=== PATIENT | female | born 1955 | race Caucasian/White ===

== ENCOUNTER → 2017-01-13 | Outpatient (CLI) | payer OTHER ==
[~2017-01-13] MED LIST: ASPCH81 PO; ENAL10TA88 PO; GLC500 PO; HYG25 PO; METO100T14 PO; SITA25TA PO
[2017-01-13 14:10] LABS: ESTIMATED AVERAGE GLUCOSE 220 mg/dl; HA1C FLAG Normal (Normal)
[2017-01-13 14:11] LABS: CALCIUM 9.7 mg/dl (8.5-10.1)
[2017-01-13 14:49] LABS: BLOOD UREA NITROGEN 17 mg/dl (7-18); CARBON DIOXIDE 24 mmol/L (21-32); CHLORIDE 102 mmol/L (98-107); CHOLESTEROL 232 mg/dl (0-200); GLUCOSE 212 mg/dl (70-99); POTASSIUM 4.1 mmol/L (3.5-5.1); SODIUM 139 mmol/L (136-145)
[2017-01-13 14:53] LABS: ALT/SGPT 30 U/L (12-78); HDL CHOLESTEROL 46 mg/dl; LDL CHOLESTEROL CALCULATED 127 mg/dl; TRIGLYCERIDES 293 mg/dl (0-150); VERY LOW DENSITY LIPOPROT CALC 59 mg/dl
== END | disposition home or self-care (01) ==
LOC: C.LABBC 11:01
PROVIDERS: ATTEND Family Medicine
DX: E11.9 Type 2 diabetes mellitus without complications (principal)

== ENCOUNTER → 2017-01-16 | Outpatient (CLI) | payer OTHER | END | disposition home or self-care (01) | LOC: C.PAPS 13:20 | PROVIDERS: ATTEND Family Medicine | DX: Z01.419 Encounter for gynecological examination (general) (routine) without abnormal findings (principal); N95.8 Other specified menopausal and perimenopausal disorders ==

== ENCOUNTER → 2017-04-16 | Outpatient (CLI) | payer OTHER ==
[2017-04-16 17:04] LABS: BLOOD UREA NITROGEN 19 mg/dl (7-18); BUN/CREATININE RATIO 17.1 (10-20); CALCIUM 9.3 mg/dl (8.5-10.1); CARBON DIOXIDE 27 mmol/L (21-32); CHLORIDE 102 mmol/L (98-107); GLUCOSE 148 mg/dl (70-99); SODIUM 136 mmol/L (136-145)
[2017-04-16 17:07] LABS: CHOLESTEROL 164 mg/dl (0-200); CHOLESTEROL/HDL RATIO 3.6; HDL CHOLESTEROL 46 mg/dl; LDL CHOLESTEROL CALCULATED 77 mg/dl; TRIGLYCERIDES 205 mg/dl (0-150); VERY LOW DENSITY LIPOPROT CALC 41 mg/dl
[2017-04-17 07:24] LABS: ESTIMATED AVERAGE GLUCOSE 223 mg/dl; HA1C FLAG Normal (Normal)
== END | disposition home or self-care (01) ==
LOC: C.LABBC 12:41
PROVIDERS: ATTEND Family Medicine
DX: E11.9 Type 2 diabetes mellitus without complications (principal); E78.5 Hyperlipidemia, unspecified; I10 Essential (primary) hypertension

== ENCOUNTER → 2018-04-09 | Outpatient (CLI) | payer BC ==
[~2018-04-09] MED LIST changes: +ANAS1TAB59 PO; +CALC500C70 PO; +CANA1TAB PO; +GLIP2.5T11 PO; +RANI150T3 PO; +SITA100T3 PO; -SITA25TA PO
[2018-04-09 14:34] VITALS: BP 130/79; PULSE 67; TEMP 36.8; O2SAT 98
--- NOTE | 2018-04-09 15:34 | Radiation Oncology Follow-Up ---
Radiation Oncology Follow-Up Date of Visit Apr 09, 2018. Reason For Visit One-month follow-up and cancer survivorship care plan Radiation Completion Date finished 03-03-18 Diagnosis (1) Malignant neoplasm of upper-outer quadrant of left breast in female, estrogen receptor positive Status: Acute Onset Date: 05/21/2017 Stage: ll (A) Permanent Comment: Self detected left breast mass Status post core needle biopsy May 21, 2017 Invasive carcinoma grade 3 Estrogen receptor positive, progesterone receptor negative,and HER-2/tammie negative Status post left axillary node core needle biopsy June 11, 2017 Metastatic adenocarcinoma Status post neoadjuvant chemotherapy Dose dense Adriamycin and Cytoxan for 4 cycles followed by weekly Taxol for 12 cycles. Chemotherapy completed November 26, 2017 Status post needle localization lumpectomy and sentinel lymph node biopsy December 17, 2017 Stage ypT1c ypN0 (i+) M0 Status post completion of radiation therapy March 03, 2018. She received 6640 cGy. Treatment to the left breast, supraclavicular area and axilla. Last Edited By: Debbie Cunningham on Mar 16, 2018 15:53 History of Present Illness We are seeing Ms. Cowan in consultation at the request of Dr. Machado. ECOG PS: 0 Ms. Cowan self palpated a left breast mass. 05/16/2017 --- bilateral diagnostic mammograms and ultrasounds --- LEFT BREAST: Findings demonstrate a suspicious abnormality. Biopsy should be considered at this time. RIGHT BREAST: Negative, no evidence of malignancy. Normal interval follow-up is recommended in 12 months. 05/21/2017 --- ultrasound-guided core biopsy of left breast, 1:00, 5 cm from nipple --- invasive carcinoma, no special type, grade 3, measuring 11 mm in the greatest dimension. Estrogen receptor strongly positive. Progesterone receptor negative. HER-2 negative. 06/06/2017 --- bilateral breast MRI --- IMPRESSION Left breast:1. Thickened left axillary lymph node. Suspicious. This lymph node is visible on ultrasound. Ultrasound-guided biopsy can be performed in clinically desired. 2. Irregular enhancing mass at site of known cancer in the upper outer quadrant. Biopsy-proven malignancy. Appropriate action is recommended. 06/11/2017 --- ultrasound-guided biopsy of left axillary lymph node --- cores of lymph node tissue with metastatic adenocarcinoma. 06/18/2017 --- PET/CT scan ---1. FDG avid left breast mass, consistent the patient's history of breast carcinoma. There is equivocal uptake within a left axillary lymph node. No other sites of active disease can be identified within the limits of the study. 2. Tiny right LF pulmonary nodules which are below reliable size threshold for PET evaluation. No prior studies are available to determine stability of these findings. CT followup recommended in 3-6 months to re-evaluate stability of these nodules. 3. Focal uptake along the cranial margin of the left femoral neck. No osseous lesion identified in this location. This could be muscular or ligamentous in origin and could be related to inflammatory change. This would be an unusual appearance and location for metastatic disease. 07/2017 to 08/2017 --- neoadjuvant dose dense AC followed by weekly paclitaxel, 4 cycles underneath the supervision of Dr. Aurelio Gallardo from medical oncology 09/2017 to 10/2017 --- weekly paclitaxel chemotherapy underneath the supervision of Dr. Aurelio Gallardo from medical oncology 12/04/2017 --- bilateral breast MRI --- IMPRESSION: LEFT BREAST: Near complete response to chemotherapy with minimal foci of enhancement spanning 1.3 cm at the posterior depth of the upper outer quadrant at the site of biopsy-proven carcinoma. No evidence of axillary or internal mammary lymphadenopathy. RIGHT BREAST: No MRI evidence of malignancy. No lymphadenopathy. Recommendation: Surgical and oncological follow-up for the patient's known left breast carcinoma. 12/17/2017 --- left breast lumpectomy and sentinel lymph node biopsy by Dr. Nan Machado --- lumpectomy pathology: residual invasive carcinoma, grade 3, 1.1 cm in greatest dimension. All inked resection margins, negative for carcinoma with 0.15 cm from the closest lateral margin and 0.25 cm from the closest posterior margin. 5 lymph nodes excised: one lymph node with isolated tumor cells. We are now seeing the patient in consultation discuss role of radiation therapy. Status post completion of radiation therapy March 03, 2018. She received 6640 cGy. Treatment was given to the left breast, supraclavicular area and axilla. Interim History She has been doing well over this past month. The irritation of the skin at the end of treatment has steadily improved. She is noted no masses or tenderness and no change of her axilla. She has decreased sensation to touch under the axilla. This is been present since surgery. She continues on the anastrozole. She is tolerating this well. She denies any hot flashes. She had no complaints of joint pains. She is scheduled for follow-up mammography as well as visits with Dr. Gallardo and Dr. Machado. She uses Aquaphor or Vaseline to the areas of dry skin. Allergies Coded Allergies: No Known Allergies (Unverified , 07/30/11) Home Medications Scheduled Anastrozole (Arimidex), 1 TAB PO DAILY Aspirin (Aspirin Tab-Chewable *), 81 MG PO DAILY Calcium/Vitamin D (Os-Magdaleno 500 Plus D), 1 TAB PO DAILY Canagliflozin (Invokana), 100 MG PO DAILY Chlorthalidone (Hygroton *), 25 MG PO DAILY Enalapril (Vasotec), 20 MG PO BID Glipizide (Glipizide Er), 1 TAB PO BID Metformin HCL (Glucophage *), 1,000 MG PO BID Metoprolol Tartrate (Lopressor) (Lopressor), 100 MG PO BID Ranitidine Hcl (Zantac), 1 TAB PO BID Sitagliptin Phosphate (Januvia), 100 MG PO DAILY Review of Systems Gastrointestinal: Symptoms: WNL Oral: Symptoms: No Problems Respiratory: Symptoms: WNL Urinary: Symptoms: Nocturia Comments: occ nocturia Skin: Symptoms: No Problems Breast: Right Upper Arm Measurement: 32.0 Right Mid Arm Measurement: 25.5 Right Wrist Measurement: 16.4 Left Upper Arm Measurement: 33.5 Left Mid Arm Measurement: 24.0 Left Wrist Measurement: 17.0 Arm Dominence: Right Patient Cosmetic Evaluation: Good Staff Cosmetic Evalaluation: Good Additional Notes: She completed a distress management report and answer "no" to all questions. Physical Exam Vital Signs Date Time Temp Pulse Resp B/P (MAP) Pulse Ox O2 Delivery O2 Flow Rate FiO2 04/09/18 14:34 36.8 67 16 130/79 98 ECOG Performance Status: 0 Fatigue: None General Appearance: no apparent distress Eyes: normal inspection, EOMI ENT: normal ENT inspection, hearing grossly normal Neck: no adenopathy, thyroid normal Respiratory/Chest: lungs clear, no respiratory distress, no accessory muscle use Breast: Breast examination reveals well-healed incisions of the left breast. There is resolving hyperpigmentation. There is resolving mild edema in the lower quadrants. There are no masses or tenderness and no axillary adenopathy. She has no skin retractions or nipple changes. Using the Wakefield score cosmesis she has a good outcome. The right breast showed no masses or tenderness and no axillary adenopathy. Cardiovascular: regular rate, rhythm, no gallop, no murmur Extremities: no pedal edema Neurologic/Psychiatric: no motor/sensory deficits, alert, normal mood/affect Skin: warm/dry Pain Management Patient Reports Pain: No Side: Bilateral Patient Preferred Pain Scale: 0 - 10 Initial Pain Intensity: 0.0 Pain Management Plan She denies pain therefore requires no pain management. Laboratory Laboratory Results: not applicable Pathology Pathology Results: were reviewed, and pertinent findings noted in HPI Imaging Imaging Studies: were reviewed, and pertinent findings noted in HPI Assessment & Plan She was seen and examined by Dr. Gallardo. She will continue follow-up with medical oncology, primary care physician, and breast surgeon. Mammography is scheduled for May 18, 2018. She will see Dr. Gallardo in medical oncology on June 12, 2018. Recheck scanning and laboratory studies per medical oncology. She has an appointment scheduled with Dr. Machado in July. We discussed the hyperpigmentation in that this will steadily resolve. She can use the Aquaphor for skin dryness or [id number] products such as Jergens ultra healing. I reviewed with her that gentle massage can be used to help with the small amount of breast edema. Today we completed a cancer survivorship care plan. A copy of the document was given to the patient. She was given a survivorship booklet. Assessment & Plan (Attending) I agree with note created by Debbie Cunningham PA-C. I reviewed the patient's chart and information with her. I have examined and evaluated the patient. I reviewed relevant clinical information and answered the patient's and/or family' s questions. [employer] Total Time In Follow-Up I spent 20 minutes speaking to the patient in performing examination. I spent 20 minutes reviewing information, preparing the survivorship document, and completing this note. Total Time (Attending) In Follow-Up I spent 15 minutes examining and counseling the patient. [employer] Copy To Yue Laurent D.O.; Nan Machado MD; Aurelio Gallardo M.D.
== END | disposition home or self-care (01) ==
LOC: C.ONC 14:27
PROVIDERS: ATTEND Physician Assistant Medical
DX: Z08 Encounter for follow-up examination after completed treatment for malignant neoplasm (principal); Z92.3 Personal history of irradiation; Z85.3 Personal history of malignant neoplasm of breast